=== PATIENT | male | born 1955 | race Caucasian/White ===

== ENCOUNTER 2017-10-18 14:19 | Emergency (ER) | payer SELFPAY ==
[2017-10-18 14:23] VITALS: BP 149/97
[2017-10-18] MEDS ORDERED: Albuterol/Ipratropium NEB.SOL* Albuterol 2.5 MG/Ipratropium 0.5 MG 3 ML ONE (14:27)
[2017-10-18] MEDS ORDERED: Albuterol/Ipratropium NEB.SOL* Albuterol 2.5 MG/Ipratropium 0.5 MG 3 ML INH ONE (14:28)
[2017-10-18] MEDS ORDERED: predniSONE TAB* 20 MG PO ONE (14:29)
--- NOTE | 2017-10-18 14:44 | UC ---
Respiratory Complaint HPI - HPI Summary HPI Summary: Pt c/o gradual onset of chest congestion, cough, wheezing, X 5 days. Pt denies CP, siddharth past hx of cardiac or respiratory disorders. - History of Current Complaint Chief Complaint: UCRespiratory Stated Complaint: SOB/COUGH *1 WEEK Time Seen by Provider: 10/18/17 14:26 Hx Obtained From: Patient Onset/Duration: Gradual Onset, Lasting Days, Still Present Timing: Constant Severity Initially: Mild Severity Currently: Moderate Pain Intensity: 0 Character: Cough: Nonproductive Aggravating Factors: Exertion, Deep Breaths, Recumbent Position Alleviating Factors: Nothing Associated Signs And Symptoms: Positive: Wheezing - Risk Factors Pulmonary Embolism Risk Factors: Smoking Cardiac Risk Factors: Smoking Pseudomonas Risk Factors: Negative Tuberculosis Risk Factors: Smoking - Allergies/Home Medications Allergies/Adverse Reactions: Allergies Allergy/AdvReac Type Severity Reaction Status Date / Time No Known Allergies Allergy Verified 10/18/17 14:21 Home Medications: Home Medications Arthris Med 1 tab PO DAILY 10/18/17 [History] PMH/Surg Hx/FS Hx/Imm Hx Previously Healthy: Yes - Surgical History Surgical History: Yes Surgery Procedure, Year, and Place: hernia repair - Family History Known Family History: Positive: Cardiac Disease - Social History Occupation: Retired Lives: With Family Alcohol Use: None Substance Use Type: None Smoking Status (MU): Heavy Every Day Tobacco Smoker Type: Cigarettes Amount Used/How Often: 2.5 packs per day Have You Smoked in the Last Year: Yes Review of Systems Constitutional: Fatigue Skin: Negative Eyes: Negative ENT: Negative Respiratory: Shortness Of Breath, Cough Cardiovascular: Negative Gastrointestinal: Negative Genitourinary: Negative Motor: Negative Neurovascular: Negative Musculoskeletal: Negative Neurological: Negative Psychological: Negative Is Patient Immunocompromised?: No All Other Systems Reviewed And Are Negative: Yes Physical Exam Triage Information Reviewed: Yes Appearance: Ill-Appearing Vital Signs: Initial Vital Signs Temp 97.3 F 10/18/17 14:20 Pulse 104 10/18/17 14:20 Resp 24 10/18/17 14:20 BP 149/97 10/18/17 14:20 Pulse Ox 94 10/18/17 14:20 Vital Signs Reviewed: Yes Eye Exam: Normal ENT Exam: Normal Dental: Positive: Gross Decay/Caries @ Neck exam: Normal Respiratory: Positive: Decreased breath sounds, Wheezing Cardiovascular Exam: Normal Musculoskeletal Exam: Normal Neurological Exam: Normal Psychological Exam: Normal Skin Exam: Normal UC Diagnostic Evaluation - Laboratory O2 Sat by Pulse Oximetry: 94 - Radiology Xray Interpretation: No Acute Changes Radiology Interpretation Completed By: Radiologist - IMPRESSION: - EKG Cardiac Rate: Tachycardia Ectopy: None Respiratory Course/Dx - Course Course Of Treatment: I discussed with the pt the need to go to the closest ER for futher evaluation and treatment. I discussed the XRAY interpretation. Pt verbalized understadning and agreed to plan of care. - Differential Dx/Diagnosis Differential Diagnosis/HQI/PQRI: Bronchitis, Exacerbation Of COPD Provider Diagnoses: acute exacerbation of COPD, - Physician Notification/Consults Discussed Patient Care With: Kait kelly - accepted pt Time Discussed With Above Provider: 15:20 Discharge - Sign-Out/Discharge Documenting (check all that apply): Discharge/Admit/Transfer - Discharge Plan Condition: Stable Disposition: [facility] LVL OF CARE FAC Patient Education Materials: COPD (Chronic Obstructive Pulmonary Disease) (ED) Referrals: [facility] [Outside] Non Staff,Doctor [Primary Care Provider] - Additional Instructions: It is recommended that you go directly to the closest Emergency Room for further treatment and evaluation. We have offered to transfer via ambulance and you have refused. - Billing Disposition and Condition Condition: STABLE Disposition: EMTALA
--- NOTE | 2017-10-18 15:04 | RAD ---
HISTORY: Shortness of breath, wheezing COMPARISONS: None VIEWS: 4: Frontal dual-energy and lateral views of the chest. FINDINGS: CARDIOMEDIASTINAL SILHOUETTE: The cardiomediastinal silhouette is normal. AMBROSE: The ambrose are normal. PLEURA: There is eventration of left hemidiaphragm. LUNG PARENCHYMA: There is hyperinflation with flattening of the diaphragm and expansion of the AP diameter of the chest. ABDOMEN: The upper abdomen is clear. There is no subphrenic gas. BONES AND SOFT TISSUES: Degenerative changes are noted along the spine. OTHER: None. IMPRESSION: HYPERINFLATION, CONSISTENT WITH COPD. NO ACTIVE CARDIOPULMONARY DISEASE.
== END 2017-10-18 15:20 | disposition short-term general hospital (02) ==
LOC: UCCORT 14:19
DX: J44.1 Chronic obstructive pulmonary disease with (acute) exacerbation (principal); R00.0 Tachycardia, unspecified; F17.210 Nicotine dependence, cigarettes, uncomplicated
CPT/HCPCS: 71046; 93005; 99202; A9270-GY; G0463; J7512